=== PATIENT | female | born 2000 | race American Indian/Alaskan Native ===

== ENCOUNTER 2022-02-03 19:43 | Emergency (ER) | payer SELFPAY ==
--- NOTE | 2022-02-03 22:46 | Emergency Department Report ---
- General Chief complaint: Skin/Abscess/Foreign Body Stated complaint: LEFT EAR NUMBNESS/EARRING STUCK IN EARLOBE Time Seen by Provider: 02/03/22 20:53 Source: patient Mode of arrival: Ambulatory Limitations: No Limitations - History of Present Illness Initial comments: Patient 22-year-old female who presents for left earlobe foreign body. Patient states earring shop broke off in her ear. And she has been unable to remove it. Foreign body in place for past 1 month. States site is grown over now with mild swelling to upper pinna piercing goes through upper cartilage. There is mild erythema mild swelling there is no drainage no open wound at this time. Pain described at 4/10 exacerbated by palpation. No fevers no chills no decrease in hearing no ear drainage. complaint: foreign body - Related Data Previous Rx's Medication Instructions Recorded Last Taken Type Ibuprofen [Motrin 800 MG tab] 800 mg PO Q8HR PRN #30 tablet 02/03/22 Unknown Rx cephALEXin [Keflex] 500 mg PO Q8HR 7 Days #21 cap 02/03/22 Unknown Rx Abscess Boil HPI - HPI Chief Complaint: Skin/Abscess/Foreign Body Stated Complaint: LEFT EAR NUMBNESS/EARRING STUCK IN EARLOBE Time Seen by Provider: 02/03/22 20:53 Home Medications: Previous Rx's Medication Instructions Recorded Last Taken Type Ibuprofen [Motrin 800 MG tab] 800 mg PO Q8HR PRN #30 tablet 02/03/22 Unknown Rx cephALEXin [Keflex] 500 mg PO Q8HR 7 Days #21 cap 02/03/22 Unknown Rx ED Review of Systems ROS: Stated complaint: LEFT EAR NUMBNESS/EARRING STUCK IN EARLOBE Other details as noted in HPI Constitutional: denies: chills, fever Eyes: denies: eye pain, eye discharge, vision change ENT: denies: ear pain, throat pain Respiratory: denies: cough, shortness of breath, wheezing Cardiovascular: denies: chest pain, palpitations Endocrine: no symptoms reported Gastrointestinal: denies: abdominal pain, nausea, diarrhea Genitourinary: denies: urgency, dysuria, discharge Musculoskeletal: denies: back pain, joint swelling, arthralgia Skin: other (Foreign body left earlobe) Neurological: as per HPI Psychiatric: denies: anxiety, depression Hematological/Lymphatic: denies: easy bleeding, easy bruising ED Past Medical Hx - Medications Home Medications: Home Medications Medication Instructions Recorded Confirmed Last Taken Type Ibuprofen [Motrin 800 MG tab] 800 mg PO Q8HR PRN #30 tablet 02/03/22 Unknown Rx cephALEXin [Keflex] 500 mg PO Q8HR 7 Days #21 cap 02/03/22 Unknown Rx ED Physical Exam - General Limitations: No Limitations General appearance: alert, in no apparent distress - Head Head exam: Present: normocephalic, normal inspection - Eye Eye exam: Present: normal appearance, EOMI Pupils: Present: normal accommodation - ENT ENT exam: Present: normal orophraynx, mucous membranes dry, TM's normal bilaterally. Absent: normal external ear exam (Mild erythema swelling no drainage piercing site is closed) - Expanded ENT Exam Expanded Ear exam: Present: other (Mild erythematous swelling at the scaphia) Throat exam: Positive: normal inspection - Neck Neck exam: Present: normal inspection - Respiratory Respiratory exam: Present: normal lung sounds bilaterally. Absent: respiratory distress, wheezes, stridor - Cardiovascular Cardiovascular Exam: Present: regular rate, normal rhythm, normal heart sounds. Absent: systolic murmur, diastolic murmur, rubs, gallop - GI/Abdominal GI/Abdominal exam: Present: soft, normal bowel sounds - Rectal Rectal exam: Present: deferred - Extremities Exam Extremities exam: Present: normal inspection, full ROM. Absent: tenderness - Back Exam Back exam: Present: normal inspection. Absent: CVA tenderness (R), CVA tenderness (L) - Neurological Exam Neurological exam: Present: alert, oriented X3, CN II-XII intact, normal gait - Psychiatric Psychiatric exam: Present: normal affect, normal mood - Skin Skin exam: Present: warm, dry, intact, erythema (As above). Absent: rash ED Course Vital Signs 02/03/22 20:36 Temperature 98.8 F Pulse Rate 75 Respiratory 18 Rate Blood Pressure 108/72 O2 Sat by Pulse 100 Oximetry - Procedure Description Procedures done: Attempted foreign body removal left upper earlobe. Anesthesia 1% lidocaine x0.25 cc site cleaned with Betadine solution, incision with 18- gauge needle x1 unable to remove foreign body sterile dressing applied there is no bleeding patient tolerated procedure with minimal distress, patient given wound care instructions including follow-up with general surgery in 2 to 3 days. Antibiotics, wash with soap and water, Neosporin ointment. Patient verbalized agreement and understanding with discharge plan. ED Medical Decision Making - Medical Decision Making Foreign body earlobe at scaphia foreign body removal unsuccessful, plan DC to home with prescriptions, follow-up with general surgery, wound care as directed. Patient verbalized agreement understanding with same sterile dressings intact all bleeding is controlled. Patient tolerated procedure with minimal distress. Patient DC to home in stable condition at this time. Critical care attestation.: If time is entered above; I have spent that time in minutes in the direct care of this critically ill patient, excluding procedure time. ED Disposition Clinical Impression: Foreign body in ear lobe Qualifiers: Encounter type: initial encounter Laterality: left Qualified Code(s): S00.452A - Superficial foreign body of left ear, initial encounter Disposition: HOME / SELF CARE / HOMELESS Is pt being admited?: No Does the pt Need Aspirin: No Condition: Stable Instructions: Skin Foreign Body, Wound Care, Adult Additional Instructions: Take Medications as prescribed, Wash with soap and water daily, follow up with general surgery in 2-3 days, return to emergency if symptoms worsen. Prescriptions: cephALEXin [Keflex] 500 mg PO Q8HR 7 Days #21 cap Ibuprofen [Motrin 800 MG tab] 800 mg PO Q8HR PRN #30 tablet PRN Reason: pain Referrals: FRANKIE DARLING DO [Staff Physician] - 3-5 Days Forms: Work/School Release Form(ED) Time of Disposition: 23:03
[2022-02-03 23:15] VITALS: BP 100/60
== END 2022-02-03 23:27 | disposition home or self-care (01) ==
LOC: ED 19:43
DX: S00.452A Superficial foreign body of left ear, initial encounter (principal); Z79.899 Other long term (current) drug therapy; X58.XXXA Exposure to other specified factors, initial encounter; Y93.89 Activity, other specified; Y92.89 Other specified places as the place of occurrence of the external cause; Y99.8 Other external cause status
CPT/HCPCS: 99282